=== PATIENT | male | born 1960 | race American Indian/Alaskan Native ===

== ENCOUNTER 2019-02-26 10:31 | Emergency (ER) | payer MEDICAID ==
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
[2019-02-26 13:39] VITALS: BP 134/82; PULSE 69; RESP 17; TEMP 97.6; O2SAT 99
--- NOTE | 2019-02-26 14:38 | RAD ---
Date of service: 02/26/2019 PROCEDURE: Right middle finger radiographs. HISTORY: R 3rd finger hyperflexed COMPARISON: None. TECHNIQUE: AP radiograph of the right hand, as well as spot oblique and lateral images of index finger were obtained. 3 views obtained. FINDINGS: RIGHT MIDDLE FINGER: Right middle finger normal, without fracture of focal lesion. Remainder of the right hand (as seen on the AP view) grossly unremarkable. JOINTS: There is flexion of the DIP joint 3rd finger consistent with trigger finger. SOFT TISSUES: Normal. OTHER FINDINGS: None. IMPRESSION: Findings are consistent with trigger finger DIP joint 3rd digit. No evidence of acute displaced fracture nor dislocation.
== END 2019-02-26 13:37 | disposition home or self-care (01) ==
LOC: ED 10:31
DX: M20.011 Mallet finger of right finger(s) (principal)